=== PATIENT | male | born 1985 | race Native Hawaiian/Other Pacific Islander ===

== ENCOUNTER 2018-04-21 11:42 | Inpatient (IN) | payer BC ==
[~2018-04-21] VITALS: Ht 170.2 cm; Wt 77.1 kg
[2018-04-21] MEDS ORDERED: IV NORMAL SALINE 1000 ML BAG IV ONE (12:30)
[2018-04-21 12:43] LABS: BASOPHILS # (AUTO) 0.1 K/uL (0.0-8.0); BASOPHILS % (AUTO) 1.2 % (0.0-2.0); EOSINOPHILS # (AUTO) 0.4 K/uL (0.0-0.7); EOSINOPHILS % (AUTO) 4.8 % (0.0-7.0); HEMOGLOBIN 15.5 g/dL (12.5-16.3); LYMPHOCYTES % (AUTO) 25.8 % (20.5-51.5); MEAN CORPUSCULAR HGB CONC 34 g/dL (32.5-36.3); MEAN CORPUSCULAR VOLUME 85.9 fL (73.0-96.2); MONOCYTES # (AUTO) 0.6 K/uL (2.0-10.0); MONOCYTES % (AUTO) 8.1 % (0.0-11.0); NEUTROPHILS # (AUTO) 4.7 K/uL (1.8-8.9); NEUTROPHILS % (AUTO) 60.1 % (38.5-71.5); PLATELET COUNT (AUTO) 302 K/uL (152-348); RED BLOOD CELL COUNT(AUTO) 5.36 MIL/uL (4.06-5.63); WHITE BLOOD COUNT (AUTO) 7.9 K/uL (3.6-10.2)
--- NOTE | 2018-04-21 12:44 | NUR ---
PT IS IN ROOM #2A. DR VALENTE EVALUATED THE PT.
[2018-04-21 12:52] LABS: CREATININE 0.9 mg/dL (0.6-1.3); POTASSIUM 3.4 mmol/L (3.5-5.1)
[2018-04-21 12:57] LABS: BILIRUBIN,DIRECT 0.1 mg/dL (0.0-0.2); BILIRUBIN,TOTAL 0.3 mg/dL (0.2-1.0); TOTAL PROTEIN, SERUM 8.5 g/dL (6.4-8.2)
[2018-04-21] MEDS ORDERED: IOHEXOL 300MG/ML 100 ML INFUS..BTL ONE (13:18)
[2018-04-21] MEDS ORDERED: SWABABLE VALVE TRANSFER SET EA MC ONE (13:19)
[2018-04-21] MEDS ORDERED: IV NORMAL SALINE 250 ML IV ONE (13:19)
[2018-04-21] MEDS ORDERED: ASPIRIN 325 MG TABLET PO ONE (14:15)
[2018-04-21] MEDS ORDERED: ASPIRIN 325 MG TABLET ONE (14:32)
[2018-04-21 15:26] VITALS: BP 136/92
--- NOTE | 2018-04-21 15:28 | NUR ---
REPORT WAS GIVEN TO WATER RESOURCE AGENT. PT WAS TRANSFERED TO ROOM #223.
[2018-04-21] MEDS ORDERED: ACETAMINOPHEN 325 MG TABLET PO PRN (15:30)
[2018-04-21] MEDS ORDERED: MAG HYDROX/AL HYDROX/SIMETH 30 ML LIQUID UDC PO PRN (15:30)
[2018-04-21] MEDS ORDERED: POTASSIUM CHLORIDE 20 MEQ TAB.PRT.SR PO ONE (15:45)
--- NOTE | 2018-04-21 15:50 | NUR ---
RECEIVED PATIENT FROM ER. PATIENT ORIENTED TO ROOM, INITIAL ASSESSMENT PERFORMED, AND SWALLOW EVALUATION PERFORMED. NO DISTRESS NOTED AT THIS TIME, NO UNILATERAL WEAKNESS NOTED, NEURO CHECK PERFORMED. PATIENT REPORTED MILD NUMBNESS TO RIGHT ARM AND LEG THAT IS DULL.
[2018-04-21] MEDS ORDERED: BLOOD SUGAR DIAGNOSTIC 1 EACH STRIP VI SCH ×2 (16:00→16:30)
[2018-04-21 16:18] LABS: THYROID STIMULATING HORMONE 1.198 mIU/mL (0.358-3.740)
[2018-04-21 16:23] LABS: BILIRUBIN,TOTAL 0.4 mg/dL (0.2-1.0); CREATININE 0.8 mg/dL (0.6-1.3); POTASSIUM 3.7 mmol/L (3.5-5.1)
[2018-04-21 16:51] LABS: BASOPHILS # (AUTO) 0.1 K/uL (0.0-8.0); BASOPHILS % (AUTO) 0.9 % (0.0-2.0); EOSINOPHILS # (AUTO) 0.2 K/uL (0.0-0.7); EOSINOPHILS % (AUTO) 2.4 % (0.0-7.0); HEMATOCRIT 43.7 % (36.7-47.1); HEMOGLOBIN 14.6 g/dL (12.5-16.3); LYMPHOCYTES # (AUTO) 1.7 K/uL (20.0-40.0); LYMPHOCYTES % (AUTO) 24.3 % (20.5-51.5); MEAN CORPUSCULAR HEMOGLOBIN 28.7 uug (23.8-33.4); MEAN CORPUSCULAR HGB CONC 33 g/dL (32.5-36.3); MEAN CORPUSCULAR VOLUME 86.2 fL (73.0-96.2); MONOCYTES # (AUTO) 0.6 K/uL (2.0-10.0); MONOCYTES % (AUTO) 8.2 % (0.0-11.0); NEUTROPHILS # (AUTO) 4.4 K/uL (1.8-8.9); NEUTROPHILS % (AUTO) 64.2 % (38.5-71.5); PLATELET COUNT (AUTO) 294 K/uL (152-348); RED BLOOD CELL COUNT(AUTO) 5.07 MIL/uL (4.06-5.63); WHITE BLOOD COUNT (AUTO) 6.8 K/uL (3.6-10.2)
[2018-04-21 20:21] VITALS: BP 126/78
[2018-04-21] MEDS ORDERED: SIMVASTATIN 10 MG TABLET PO SCH (21:00)
[2018-04-22] VITALS: BP 97/47
[2018-04-22 01:27] LABS: *BILIRUBIN,URIN NEGATIVE (NEGATIVE); *BLOOD, URINE NEGATIVE (NEGATIVE); *CLARITY,URINE CLEAR (CLEAR); *COLOR,URINE YELLOW (YELLOW); *KETONES,URINE NEGATIVE (NEGATIVE); LEUKOCYTE ESTERASE ,URINE NEGATIVE (NEGATIVE); NITRITE, URINE NEGATIVE (NEGATIVE); UGLUCOSE NEGATIVE (NEGATIVE)
[2018-04-22 01:33] LABS: BACTERIA,URINE NONE SEEN /HPF (NONE SEEN); RBC,URINE 0-3 /HPF (0-3); SQUAMOUS EPITHELIAL CELL,UR FEW /HPF (NONE SEEN); URINE AMORPHOUS PHOSPHATES FEW /HPF; WBC,URINE 0-3 /HPF (0-3)
[2018-04-22 04:00] VITALS: BP 115/63
--- NOTE | 2018-04-22 05:56 | NUR ---
TEXTED DR. KANG FOR MRI APPROVAL.
--- NOTE | 2018-04-22 06:35 | NUR ---
END OF SHIFT REPORT Patient rested well in between care; VSS; Neuro stable; patient is for MRI today; MRI checklist in chart; endorse to AM RN regarding schedule follow up; needs attended; continue to monitor; continue plan of care.
[2018-04-22 06:37] LABS: BASOPHILS # (AUTO) 0.1 K/uL (0.0-8.0); BASOPHILS % (AUTO) 0.8 % (0.0-2.0); EOSINOPHILS # (AUTO) 0.4 K/uL (0.0-0.7); EOSINOPHILS % (AUTO) 4.4 % (0.0-7.0); HEMATOCRIT 43.8 % (36.7-47.1); HEMOGLOBIN 14.5 g/dL (12.5-16.3); LYMPHOCYTES # (AUTO) 1.8 K/uL (20.0-40.0); LYMPHOCYTES % (AUTO) 21.7 % (20.5-51.5); MEAN CORPUSCULAR HEMOGLOBIN 28.7 uug (23.8-33.4); MEAN CORPUSCULAR HGB CONC 33 g/dL (32.5-36.3); MEAN CORPUSCULAR VOLUME 86.8 fL (73.0-96.2); MONOCYTES # (AUTO) 0.6 K/uL (2.0-10.0); MONOCYTES % (AUTO) 7.7 % (0.0-11.0); NEUTROPHILS # (AUTO) 5.3 K/uL (1.8-8.9); NEUTROPHILS % (AUTO) 65.4 % (38.5-71.5); PLATELET COUNT (AUTO) 279 K/uL (152-348); RED BLOOD CELL COUNT(AUTO) 5.05 MIL/uL (4.06-5.63); WHITE BLOOD COUNT (AUTO) 8.2 K/uL (3.6-10.2)
[2018-04-22 06:42] LABS: CREATININE 0.8 mg/dL (0.6-1.3)
[2018-04-22] MEDS ORDERED: PANTOPRAZOLE SODIUM 40 MG TABLET.DR PO SCH (07:00)
[2018-04-22] MEDS ORDERED: ASPIRIN EC 81 MG TABLET.DR PO SCH (09:00)
[2018-04-22 11:40] VITALS: BP 121/77
[2018-04-22 16:00] VITALS: BP 121/79
[2018-04-22 20:24] VITALS: BP 153/79
--- NOTE | 2018-04-22 20:56 | NUR ---
Dr Vázquez dcd patient from neuro standpoint; referred to Arnulfo DÍAZ for dc orders; Arnulfo DÍAZ dcd patient; no home meds; instructed patient to come back in AM to see case packer and sealer regarding outpatient Physical therapy; Patient also requiring physician note for work; IVHL removed, no bleeding noted; patient is discharged in improved condition; discharge papers and instructions given to Mr Vela.
== END 2018-04-22 20:40 | disposition home or self-care (01) | DRG 552 ==
LOC: ER 11:42 → TELE 14:54 → MEDSURG3 04-22 10:48 → TELE3 04-22 11:44
PROVIDERS: ADMIT Nurse Practitioner Acute Care; ATTEND Nurse Practitioner Acute Care
DX: M50.123 Cervical disc disorder at C6-C7 level with radiculopathy (principal); R20.2 Paresthesia of skin; M48.02 Spinal stenosis, cervical region; M54.16 Radiculopathy, lumbar region; Z87.09 Personal history of other diseases of the respiratory system; E87.6 Hypokalemia; K21.9 Gastro-esophageal reflux disease without esophagitis
CPT/HCPCS: 36415; 70030-TC; 70450; 70551; 71260; 72141; 84443; 85025; 85651; 85730; 92526; 92610; 93005; 97165; 97535; A4663; G0378; J7030; J7050; Q9967